=== PATIENT | female | born 1985 | race Caucasian/White ===

== ENCOUNTER 2018-09-18 14:11 | Inpatient (IN) | payer BC, OTHER ==
[~2018-09-18] VITALS: Ht 170.2 cm; Wt 60.5 kg
[2018-09-18] MEDS ORDERED: ONDANSETRON ODT 4 MG ONE ×2 (14:32→15:15)
[2018-09-18] MEDS ORDERED: MAALOX/HYOSCYAMINE/LIDOCAINE 45 ML BTL ONE (14:32)
[2018-09-18 14:40] LABS: BASOPHILS # (AUTO) 0.02 x10^3/uL (0-0.1); BASOPHILS % (AUTO) 0 % (0-1); EOSINOPHILS # (AUTO) 0.08 x10^3/uL (0-0.4); EOSINOPHILS % (AUTO) 1 % (1-7); LYMPHOCYTES # (AUTO) 1.42 x10^3/uL (1-3.4); LYMPHOCYTES % (AUTO) 13 % (22-44); MD NO; MEAN CORPUSCULAR HEMOGLOBIN 31.4 pg (27.0-34.8); MEAN CORPUSCULAR VOLUME 92.5 fL (80-100); MEAN PLATELET VOLUME 8.5 fL (7.4-10.4); MONOCYTES # (AUTO) 0.66 x10^3/uL (0.2-0.8); MONOCYTES % (AUTO) 6 % (2-9); NEUTROPHILS # (AUTO) 8.61 x10^3/uL (1.8-6.8); NEUTROPHILS % (AUTO) 80 % (42-75); PLATELET COUNT 376 x10^3/uL (130-400); RED CELL DISTRIBUTION WIDTH 14.2 % (9.6-15.2)
--- NOTE | 2018-09-18 14:41 | NUR ---
URINE COLLECTED/SENT TO LAB. BP CUFF, PULSE ON PLACED, VSS/UPDATED IN COMPUTER. ZOFRAN GIVEN FOR N/V. PT TO XRAY
--- NOTE | 2018-09-18 14:57 | NUR ---
NAUSEA DECREASED, GI COCKTAIL GIVEN. CALL LIGHT WITHIN REACH.
[2018-09-18] MEDS ORDERED: ONDANSETRON ODT 8 MG PO ONE (15:00)
[2018-09-18] MEDS ORDERED: MAALOX/HYOSCYAMINE/LIDOCAINE 45 ML BTL PO ONE (15:00)
[2018-09-18 15:02] LABS: CULTURE INDICATED? YES; MICROSCOPIC INDICATED
[2018-09-18 15:04] LABS: ALANINE AMINOTRANSFERASE 20 U/L (12-78); ALBUMIN 4.6 g/dL (3.4-5.0); ANION GAP 17 mmol/L (5-15); CALCIUM 10.2 mg/dL (8.5-10.1); CHLORIDE 97 mmol/L (98-107); CREATININE 1.04 mg/dL (0.55-1.02)
[2018-09-18 15:09] LABS: ALKALINE PHOSPHATASE 140 U/L (45-117); BILIRUBIN,TOTAL 1.2 mg/dL (0.2-1.0); TOTAL PROTEIN 9.1 g/dL (6.4-8.2)
[2018-09-18 15:28] LABS: THYROID STIMULATING HORMONE 3.31 mIU/L (0.358-3.740)
--- NOTE | 2018-09-18 15:31 | NUR ---
ALL RESULTS BACK, PT FOR RECHECK. PT STATES HEARTBURN GONE, NAUSEA DECREASED.
[2018-09-18] MEDS ORDERED: SODIUM CHLORIDE 0.9% 1,000 ML IV ONE (15:38)
--- NOTE | 2018-09-18 15:52 | NUR ---
DELAY FOR ULTRASOUND DUE TO IV, LABS AND PAIN MEDS
[2018-09-18] MEDS ORDERED: SODIUM CHLORIDE FLUSH 10ML SYR IVF ONE (16:00)
[2018-09-18] MEDS ORDERED: CEFTRIAXONE PMX 1GM/50ML 50 ML IV ONE (16:00)
--- NOTE | 2018-09-18 16:00 | NUR ---
PT TO US.
[2018-09-18] MEDS ORDERED: CEFTRIAXONE PMX 1GM/50ML 50 ML ONE (16:02)
[2018-09-18 16:14] LABS: INTERNATIONAL NORMALIZED RATIO 1.03 (0.93-1.1); PROTHROMBIN TIME 10.8 Seconds (9.6-11.5)
--- NOTE | 2018-09-18 17:04 | NUR ---
PT BACK FROM US. ROCEPHIN INFUSING.
[2018-09-18] MEDS ORDERED: OMEP10CA4 PO (17:44)
[2018-09-18] MEDS ORDERED: SERT25TA PO (17:44)
[2018-09-18] MEDS ORDERED: morphine SULFATE 10 MG/ML, 1ML IVPush PRN (18:00)
[2018-09-18] MEDS: NICOTINE 21 MG/24 HR PATCH.TD24 TD SCH (18:28)
[2018-09-18] MEDS: POTASSIUM CHLORIDE 20 MEQ in LACTATED RINGERS 1,000 ML IV SCH (18:28)
[2018-09-18 18:42] VITALS: BP 129/92
[2018-09-18 18:43] VITALS: BP_SYST 126; BP_SYST 131; BP_DIAS 91; BP_DIAS 95
[2018-09-18 19:12] LABS: CHOL/HDL RATIO 8.5; LDL/HDL RATIO 6.1 (0.5-3.0)
[2018-09-19] MEDS: POTASSIUM CHLORIDE 20 MEQ in LACTATED RINGERS 1,000 ML IV SCH ×4 (00:33→21:08)
[2018-09-19 00:54] VITALS: BP 124/88
[2018-09-19 04:32] LABS: BASOPHILS # (AUTO) 0.07 x10^3/uL (0-0.1); BASOPHILS % (AUTO) 1 % (0-1); EOSINOPHILS # (AUTO) 0.55 x10^3/uL (0-0.4); EOSINOPHILS % (AUTO) 6 % (1-7); LYMPHOCYTES # (AUTO) 3.09 x10^3/uL (1-3.4); LYMPHOCYTES % (AUTO) 36 % (22-44); MD NO; MEAN CORPUSCULAR HEMOGLOBIN 31.5 pg (27.0-34.8); MEAN CORPUSCULAR HGB CONC 34.5 g/dL (32.4-35.8); MEAN CORPUSCULAR VOLUME 91.2 fL (80-100); MEAN PLATELET VOLUME 8.4 fL (7.4-10.4); MONOCYTES # (AUTO) 0.81 x10^3/uL (0.2-0.8); MONOCYTES % (AUTO) 9 % (2-9); NEUTROPHILS # (AUTO) 4.15 x10^3/uL (1.8-6.8); NEUTROPHILS % (AUTO) 48 % (42-75); PLATELET COUNT 292 x10^3/uL (130-400); RED BLOOD COUNT 4.56 x10^6/uL (3.82-5.3); RED CELL DISTRIBUTION WIDTH 14.3 % (9.6-15.2)
[2018-09-19 04:41] LABS: ALANINE AMINOTRANSFERASE 18 U/L (12-78); ALBUMIN 3.7 g/dL (3.4-5.0); ANION GAP 9 mmol/L (5-15); CALCIUM 8.8 mg/dL (8.5-10.1); CHLORIDE 99 mmol/L (98-107); CREATININE 0.67 mg/dL (0.55-1.02)
[2018-09-19 04:44] LABS: ALKALINE PHOSPHATASE 105 U/L (45-117); BILIRUBIN,TOTAL 1.1 mg/dL (0.2-1.0)
[2018-09-19 04:49] LABS: THYROID STIMULATING HORMONE 1.77 mIU/L (0.358-3.740)
[2018-09-19] MEDS ORDERED: POTASSIUM CHLORIDE 20 MEQ TAB.ER.PRT PO ONE (07:00)
[2018-09-19 07:09] VITALS: BP 114/76
[2018-09-19] MEDS ORDERED: SERTRALINE 100MG TABLET ONE (07:54)
[2018-09-19] MEDS: SERTRALINE 100MG TABLET PO SCH (07:56)
[2018-09-19] MEDS: PANTOPROZOLE 40MG TABLET PO SCH (07:56)
[2018-09-19 12:46] VITALS: BP 130/94
[2018-09-19] MEDS: NICOTINE 21 MG/24 HR PATCH.TD24 TD SCH (15:02)
[2018-09-19] MEDS: CEFTRIAXONE PMX 1GM/50ML 50 ML IV SCH (15:43)
[2018-09-19 19:32] VITALS: BP 127/87
[2018-09-20 00:46] VITALS: BP 138/91
[2018-09-20] MEDS: POTASSIUM CHLORIDE 20 MEQ in LACTATED RINGERS 1,000 ML IV SCH ×3 (03:30→18:19)
[2018-09-20 05:56] LABS: CHLORIDE 109 mmol/L (98-107)
[2018-09-20 06:19] LABS: ALANINE AMINOTRANSFERASE 15 U/L (12-78); ALBUMIN 3.3 g/dL (3.4-5.0); ALKALINE PHOSPHATASE 85 U/L (45-117); ANION GAP 5 mmol/L (5-15); BILIRUBIN,TOTAL 0.9 mg/dL (0.2-1.0); CALCIUM 8.6 mg/dL (8.5-10.1); CREATININE 0.41 mg/dL (0.55-1.02); TOTAL PROTEIN 6.1 g/dL (6.4-8.2)
[2018-09-20 07:32] VITALS: BP 126/86
[2018-09-20] MEDS: SERTRALINE 100MG TABLET PO SCH (10:34)
[2018-09-20] MEDS: PANTOPROZOLE 40MG TABLET PO SCH (10:34)
[2018-09-20 13:55] VITALS: BP 136/90
[2018-09-20] MEDS: NICOTINE 21 MG/24 HR PATCH.TD24 TD SCH (15:30)
[2018-09-20] MEDS: CEFTRIAXONE PMX 1GM/50ML 50 ML IV SCH (15:30)
[2018-09-20] MEDS ORDERED: OMNIPAQUE 350 MG/ML, 100ML BOTTLE ONE (17:55)
[2018-09-20 19:53] VITALS: BP 130/91
[2018-09-21] MEDS: POTASSIUM CHLORIDE 20 MEQ in LACTATED RINGERS 1,000 ML IV SCH ×2 (01:15→12:17)
[2018-09-21 01:16] VITALS: BP 148/96
[2018-09-21 07:31] VITALS: BP 142/95
[2018-09-21] MEDS ORDERED: ONDANSETRON 2MG/ML, 2ML ONE (07:55)
[2018-09-21] MEDS: PANTOPROZOLE 40MG TABLET PO SCH (07:57)
[2018-09-21] MEDS: SERTRALINE 100MG TABLET PO SCH (07:57)
[2018-09-21] MEDS ORDERED: ONDANSETRON 2MG/ML, 2ML IVPush PRN (08:00)
[2018-09-21 10:33] LABS: BASOPHILS # (AUTO) 0.06 x10^3/uL (0-0.1); BASOPHILS % (AUTO) 1 % (0-1); EOSINOPHILS # (AUTO) 0.09 x10^3/uL (0-0.4); EOSINOPHILS % (AUTO) 1 % (1-7); LYMPHOCYTES % (AUTO) 15 % (22-44); MD NO; MEAN CORPUSCULAR HEMOGLOBIN 31.7 pg (27.0-34.8); MEAN CORPUSCULAR HGB CONC 34.2 g/dL (32.4-35.8); MEAN CORPUSCULAR VOLUME 92.9 fL (80-100); MEAN PLATELET VOLUME 8.1 fL (7.4-10.4); MONOCYTES % (AUTO) 5 % (2-9); NEUTROPHILS # (AUTO) 6.18 x10^3/uL (1.8-6.8); NEUTROPHILS % (AUTO) 78 % (42-75); PLATELET COUNT 261 x10^3/uL (130-400); RED BLOOD COUNT 4.48 x10^6/uL (3.82-5.3); RED CELL DISTRIBUTION WIDTH 14.3 % (9.6-15.2)
[2018-09-21 10:45] LABS: ALANINE AMINOTRANSFERASE 14 U/L (12-78); ALBUMIN 3.6 g/dL (3.4-5.0); ANION GAP 7 mmol/L (5-15); CALCIUM 8.9 mg/dL (8.5-10.1); CHLORIDE 106 mmol/L (98-107); CREATININE 0.44 mg/dL (0.55-1.02)
[2018-09-21 10:47] LABS: ALKALINE PHOSPHATASE 90 U/L (45-117); BILIRUBIN,TOTAL 0.7 mg/dL (0.2-1.0); TOTAL PROTEIN 6.9 g/dL (6.4-8.2)
[2018-09-21] MEDS ORDERED: MAALOX/HYOSCYAMINE/LIDOCAINE 45 ML BTL PO ONE (13:30)
[2018-09-21] MEDS ORDERED: SERT100T32 PO (13:47)
[2018-09-21] MEDS ORDERED: OMEP-110 PO (13:47)
[2018-09-21] MEDS ORDERED: ATOR10TA9 PO (14:09)
[2018-09-21 14:13] VITALS: BP_SYST 138; BP_SYST 142; BP_DIAS 90; BP_DIAS 93
== END 2018-09-21 16:40 | disposition home or self-care (01) | DRG 689 ==
LOC: ED 15:46 → EDIP 15:47 → ED 15:58 → 4NOR 17:43
PROVIDERS: ADMIT Internal Medicine; ATTEND Internal Medicine
DX: N39.0 Urinary tract infection, site not specified (principal); K85.20 Alcohol induced acute pancreatitis without necrosis or infection; E78.5 Hyperlipidemia, unspecified; E86.0 Dehydration; F10.20 Alcohol dependence, uncomplicated; Y90.9 Presence of alcohol in blood, level not specified; F12.90 Cannabis use, unspecified, uncomplicated; F17.210 Nicotine dependence, cigarettes, uncomplicated; F32.9 Major depressive disorder, single episode, unspecified; G89.29 Other chronic pain; K21.9 Gastro-esophageal reflux disease without esophagitis; K59.00 Constipation, unspecified; Z80.8 Family history of malignant neoplasm of other organs or systems; Z82.49 Family history of ischemic heart disease and other diseases of the circulatory system; K83.8 Other specified diseases of biliary tract
CPT/HCPCS: 36415; 74021; 74178; 74181; 76700; 80053; 80061; 80307; 81001; 83615; 83690; 83735; 84100; 84443; 84703; 85025; 85610; 87086; 96374; 99285; G0378; J0696; J2405; J3480; Q0162; Q9967; J7120

== ENCOUNTER → 2019-04-08 | Outpatient (CLI) | payer OTHER ==
[~2019-04-08] MED LIST: ATOR10TA9 PO; OMEP-110 PO; OMEP10CA5 PO; OMNIPAQUE 350 MG/ML, 100ML BOTTLE ONE; SERT100T32 PO; SERT25TA PO
== END | disposition home or self-care (01) ==
LOC: CFH 12:02
PROVIDERS: ATTEND Physician Assistant
DX: K85.20 Alcohol induced acute pancreatitis without necrosis or infection (principal); K86.1 Other chronic pancreatitis; F41.9 Anxiety disorder, unspecified; I10 Essential (primary) hypertension; F17.210 Nicotine dependence, cigarettes, uncomplicated; R93.2 Abnormal findings on diagnostic imaging of liver and biliary tract; K21.9 Gastro-esophageal reflux disease without esophagitis; K85.90 Acute pancreatitis without necrosis or infection, unspecified; Z98.890 Other specified postprocedural states; K86.81 Exocrine pancreatic insufficiency
CPT/HCPCS: 74170; Q9967

== ENCOUNTER → 2020-04-06 | Outpatient (CLI) | payer OTHER | END | disposition home or self-care (01) | LOC: CFH 14:24 | PROVIDERS: ATTEND Physician Assistant | DX: K86.1 Other chronic pancreatitis (principal) | CPT/HCPCS: 74170; Q9967 ==

== ENCOUNTER 2020-05-06 09:27 | Emergency (ER) | payer OTHER ==
[~2020-05-06] VITALS: Ht 170.2 cm; Wt 78.5 kg
[~2020-05-06 09:27] MED LIST changes: -OMNIPAQUE 350 MG/ML, 100ML BOTTLE ONE
[2020-05-06 09:32] VITALS: BP 155/106
== END 2020-05-06 09:59 | disposition home or self-care (01) ==
LOC: ED 09:50
DX: K08.89 Other specified disorders of teeth and supporting structures (principal)
CPT/HCPCS: 99283